=== PATIENT | male | born 1940 | race Caucasian/White ===

== ENCOUNTER 2017-03-06 19:00 | Emergency (ER) | payer OTHER ==
[2017-03-06] MEDS ORDERED: NITROGLYCERIN 0.4 MG TAB SL ONE (19:08)
[2017-03-06] MEDS: NITROGLYCERIN 0.4 MG TAB SL PRN ×2 (19:10→19:14)
[2017-03-06 19:11] VITALS: TEMP 99.2
[2017-03-06] MEDS ORDERED: SODIUM CHLORIDE 0.9% FLUSH 10 ML SOL IV PRN (19:17)
[2017-03-06 19:19] LABS: BASOPHILS % (AUTO) 1 % (0-3); EOSINOPHILS % (AUTO) 10 % (0-9); HEMATOCRIT 45 % (39-53); MEAN CORPUSCULAR HGB CONC 34.9 gm/dl (32.0-36.0); MEAN CORPUSCULAR VOLUME 90 fL (80-100); MONOCYTES % (AUTO) 8.5 % (0-12); NEUTROPHILS % (AUTO) 56.6 % (37-80)
[2017-03-06] MEDS ORDERED: HEPARIN PREMIX 25,000 U/250 ML SOL IV PRN (19:22)
[2017-03-06] MEDS ORDERED: TICAGRELOR 90 MG TAB PO ONE ×2 (19:22)
[2017-03-06] MEDS ORDERED: HEPARIN SODIUM 5000 U/ML SOL ONE (19:22)
[2017-03-06] MEDS ORDERED: HEPARIN SODIUM 5000 U/ML SOL IV ONE (19:22)
[2017-03-06 19:28] LABS: GLOM FILT RATE 52 mL/min (>60); SODIUM 140 mMol/L (136-145)
[2017-03-06 19:42] VITALS: O2SAT 96
[2017-03-06 19:46] VITALS: BP 141/69; PULSE 96; RESP 20
== END 2017-03-06 19:35 | disposition short-term general hospital (02) | DRG 282 ==
LOC: ED 19:00
DX: I21.19 ST elevation (STEMI) myocardial infarction involving other coronary artery of inferior wall (principal)
CPT/HCPCS: 36415; 80048; 84484; 85025; 85610; 93005; 99291; J1644